=== PATIENT | female | born 1975 | race Caucasian/White ===

== ENCOUNTER 2020-12-26 16:26 | Outpatient (CLI) | payer BC, SELFPAY ==
--- NOTE | ~2020-12-26 | MM_ITS ---
EXAMINATION: MM screening ab BI w dora HISTORY: Screening TECHNIQUE: Craniocaudal and mediolateral oblique 3-D tomosynthesis images were obtained and synthetic 2-D images were generated. CAD analysis was submitted and interpreted. COMPARISON: Comparison to multiple prior studies sequentially, with oldest reviewed study dated 06/29. BREAST PARENCHYMAL COMPOSITION: There are scattered areas of fibroglandular density. FINDINGS: There is no evidence of suspicious mass, calcification, or architectural distortion to sugg est malignancy in either breast. There has been no suspicious interval change. IMPRESSION: 1. No mammographic evidence of malignancy. 2. Recommend routine screening mammography in one year. BI-RADS Category 1: Negative Reviewed, dictated and finalized at location A.
== END 2020-12-26 16:27 | disposition home or self-care (01) ==
PROVIDERS: PCP Nurse Practitioner Family; Visit Provider Student in an Organized Health Care Education/Training Program
DX: Z12.31 Encounter for screening mammogram for malignant neoplasm of breast (principal)
CPT/HCPCS: 77063; 77067

== ENCOUNTER 2023-12-29 14:37 | Outpatient (CLI) | payer BC, SELFPAY ==
--- NOTE | ~2023-12-29 | MM_ITS ---
EXAMINATION: MM screening ab BI w dora HISTORY: Screening TECHNIQUE: Craniocaudal and mediolateral oblique 3-D tomosynthesis images were obtained and synthetic 2-D images were generated. CAD analysis was submitted and interpreted. COMPARISON: Comparison to multiple prior studies sequentially, with oldest reviewed study dated 06/29. BREAST PARENCHYMAL COMPOSITION: Not Dense: Breast are almost entirely fatty. FINDINGS: There is no evidence of suspicious mass, calcification, or architectural distortion to sugg est malignancy in either breast. There has been no suspicious interval change. IMPRESSION: 1. No mammographic evidence of malignancy. 2. Recommend routine screening mammography in one year. BI-RADS Category 1: Negative Reviewed, dictated and finalized at location B.
== END 2023-12-29 14:38 | disposition home or self-care (01) ==
PROVIDERS: PCP Nurse Practitioner Family; Visit Provider Obstetrics & Gynecology
DX: Z12.31 Encounter for screening mammogram for malignant neoplasm of breast (principal)
CPT/HCPCS: 77063; 77067

== ENCOUNTER 2024-11-24 00:37 | Day surgery (SDC) | payer BC, SELFPAY ==
[2024-11-14 13:39] VITALS: BMI 42.0
[2024-11-24 08:09] VITALS: BP 132/76; PULSE 94; RESP 14; TEMP 36.5; O2SAT 95
[2024-11-24] MEDS: LACTATED RINGERS 1,000 ML 150 ML IV CONT (08:22)
--- NOTE | 2024-11-24 08:50 | P.PNAN_ITS ---
Anes - Initial Pre Proc Eval Procedure: Operation Date: 11/24/24 09:30 Proposed Procedures p Colonoscopy - Cliff Johnson MD Date/Time: 11/24/24 08:50 Surgeon: Cliff Johnson MD Pre Op Diagnosis: Other fecal abnormalities Patient Data Age: 49 Gender: F Height: 1.57 m Weight: 105.3 kg Last Vital Signs Temp 97.7 F 11/24/24 08:09 Pulse 94 11/24/24 08:09 Resp 14 11/24/24 08:09 BP 132/76 11/24/24 08:09 Pulse Ox 95 11/24/24 08:09 O2 Del Method Room Air 11/24/24 08:09 Allergies Allergy/AdvReac Type Severity Reaction Status Date / Time Honey Bee Allergy Unknown SWELLING Uncoded 11/24/24 08:08 Home Medications ?Medication ?Instructions ?Recorded ?Confirmed ?Type multivitamin (Daily Multi-Vitamin 1 tablet PO DAILY 07/01/21 11/24/24 History tablet) norethindrone (contraceptive) 0.35 0.35 mg PO DAILY #84 tabs 09/25/24 11/24/24 Rx mg tablet (Isha) Patient hx anesthesia problems: none Family hx anesthesia problems: none Results Review: All pre-operative results and documents have been reviewed as part of the pre- operative evaluation. [facility] Surgical History Surgical History H/O LEEP [place] teeth removed Family History Family History Father Diabetes mellitus, Onset Age: 72 Hypertension, Onset Age: 72 Family history of elevated blood lipids, Onset Age: 72 Social History Social History Smoking status: Current every day smoker Tobacco type: cigarettes Second hand tobacco smoke exposure: No Alcohol intake: never Alcohol use details: Rarely Substance use: never Substance use type: does not use Lack of Transportation: No Lack of Food: Never True Current Housing: I Have Housing Concerned About Future Housing: No Difficulty Paying Gas/Electric Bills: No Difficulty Paying for Meds: No Currently Unemployed: No Education: Associate Degree Living arrangements: alone Occupation/Education: occupation Gender identity (if verbalized by the patient): Female Sexual Orientation (if Verbalized by the Patient): Straight or Heterosexual Spiritual care concerns: No Anes - Eval Final PreProcedure Day of Procedure 11/24/24 08:50 Patient weight: morbidly obese Heart: regular rate and rhythm Lungs: clear to auscultation Airway: Mallampati scale class II Neurological: alert and oriented Last oral intake: >/= 8 hours ASA classification: III Emergent: no Anesthetic plan: proceed Anesthesia type and monitoring: general GIVS and standard monitoring Results Review: All pre-operative results and documents have been reviewed as part of the pre- operative evaluation. Informed Consent: The patient's anesthetic plan and its attendant risks and benefits were discussed with the patient/family/POA. Questions were solicited and answers provided to the satisfaction of the patient/family/POA.
--- NOTE | 2024-11-24 09:05 | P.HP_ITS ---
History of Present Illness History of Present Illness Consent: Risks, benefits, and alternatives have been discussed and questions answered. Patient agrees to proceed with procedure. Chief complaint: Other fecal abnormalities Narrative: Ines Cervantes is a 49 year old female here for first colonoscopy, + cologuard Review of Systems Review of Systems: All systems reviewed & are unremarkable except as noted in HPI and below PMFSH Past Medical History Medical History (Updated 11/24/24 @ 09:06 by Cliff Johnson MD) Positive colorectal cancer screening using Cologuard test Surgical History Surgical History H/O LEEP [place] teeth removed Family History Family History Father Diabetes mellitus, Onset Age: 72 Hypertension, Onset Age: 72 Family history of elevated blood lipids, Onset Age: 72 Social History Social History Smoking status: Current every day smoker Tobacco type: cigarettes Second hand tobacco smoke exposure: No Alcohol intake: never Alcohol use details: Rarely Substance use: never Substance use type: does not use Lack of Transportation: No Lack of Food: Never True Current Housing: I Have Housing Concerned About Future Housing: No Difficulty Paying Gas/Electric Bills: No Difficulty Paying for Meds: No Currently Unemployed: No Education: Associate Degree Living arrangements: alone Occupation/Education: occupation Gender identity (if verbalized by the patient): Female Sexual Orientation (if Verbalized by the Patient): Straight or Heterosexual Spiritual care concerns: No Meds Home Medications and Allergies Home Medications ?Medication ?Instructions ?Recorded ?Confirmed ?Type multivitamin (Daily Multi-Vitamin 1 tablet PO DAILY 07/01/21 11/24/24 History tablet) norethindrone (contraceptive) 0.35 0.35 mg PO DAILY #84 tabs 09/25/24 11/24/24 Rx mg tablet (Isha) Allergies Allergy/AdvReac Type Severity Reaction Status Date / Time Honey Bee Allergy Unknown SWELLING Uncoded 11/24/24 08:08 Vital Signs Vital Signs - 24 hr 11/24/24 08:09 Temperature 97.7 F Pulse Rate 94 Respiratory Rate 14 Blood Pressure 132/76 Pulse Oximetry 95 Oxygen Delivery Room Air Exam Const: General: comfortable and no acute distress HENMT: Face/Nose/Sinus: Normal nares present Eyes: General: appearance normal, both eyes and all related structures Neck: Neck: no JVD Resp: Auscultation: clear to auscultation bilaterally Cardio: Rate: regular rate Rhythm: regular rhythm GI: Inspection: non-distended GI Palp: Yes Soft to palpation Skin: General skin exam: normal color Neuro: General: gait normal Speech: normal speech Extrem: General: normal to inspection Psych: Mental Status: mental status grossly normal Assessment and Plan Assessment and plan (1) Positive colorectal cancer screening using Cologuard test: Code(s): R19.5 - Other fecal abnormalities Status: Acute Assessment and Plan: colonoscopy
--- NOTE | 2024-11-24 09:20 | S_PTH ---
PATIENT: Ines Cervantes LOC: [facility]#:[id number] AGE/SX: 49/F ROOM: RE11/24/[address]: Cliff Johnson MD : 1975 BED: DIS: 11/24/2024 SPEC #: [id number] RECD: 11/24/24 11:40 STATUS: IMELDA REDasha #: [id number] [place]: 11/24/24 09:[address]: Cliff Johnson DEPT: [facility] Surgical RECD BY: Sujata Hedrick ENTERED: 11/24/24 11:41 SP TYPE: Surgical OTHR DR: Samantha Lucas, MATHEW Tissues: A - Colon Polypectomy Procedures: Hematoxylin and Eosin Stain Gross and Microscopic Level 4
[2024-11-24 09:22] LABS: BEDSIDEPREGUCG Negative (Negative)
[2024-11-24 09:34] VITALS: BP 82/65; PULSE 89; RESP 17; O2SAT 94
[2024-11-24 09:44] VITALS: BP 107/65; PULSE 81; RESP 18; O2SAT 100
[2024-11-24 09:54] VITALS: BP 106/67; PULSE 73; RESP 17; O2SAT 98
== END 2024-11-24 10:08 | disposition home or self-care (01) ==
PROVIDERS: PCP Nurse Practitioner Family; Referring Provider Obstetrics & Gynecology; Visit Provider Internal Medicine Gastroenterology
PROC: 0DJD8ZZ Inspection of Lower Intestinal Tract, Via Natural or Artificial Opening Endoscopic (ICD-10-PCS; CPT 45378; principal; 2024-11-24 09:30)
DX: R19.5 Other fecal abnormalities (principal); D12.5 Benign neoplasm of sigmoid colon; K63.5 Polyp of colon; D17.5 Benign lipomatous neoplasm of intra-abdominal organs; K64.8 Other hemorrhoids; F17.210 Nicotine dependence, cigarettes, uncomplicated; E66.01 Morbid (severe) obesity due to excess calories; Z68.41 Body mass index [BMI] 40.0-44.9, adult
CPT/HCPCS: 45385; 88305; J2003; J2704; J7120